=== PATIENT | male | born 1975 | race Caucasian/White ===

== ENCOUNTER 2021-04-12 01:19 | Observation (INO) | payer OTHER ==
[2021-04-12] MEDS ORDERED: MORPHINE SULFATE 4 MG/ML SYRINGE IV STA (01:42)
[2021-04-12] MEDS ORDERED: SODIUM CHLORIDE 0.9% 500 ML 500 ML IV STA (01:42)
[2021-04-12] MEDS ORDERED: ONDANSETRON 4 MG/2 ML VIAL IVP STA (01:42)
--- NOTE | 2021-04-12 02:01 | ED ---
Chest Pain HPI - General Source: patient Mode of arrival: ambulatory Limitations: no limitations <Roseann Park - Last Filed: 04/13/21 15:08> <Jose Muhammad - Last Filed: 04/23/21 03:36> - General Chief Complaint: Chest Pain Stated Complaint: Abd Pain Time Seen by Provider: 04/12/21 01:34 - History of Present Illness Initial Comments: Patient is a 45-year-old male presenting to the emergency department with a sudden onset of upper abdominal pain with radiation to the back and vomiting about an hour and a half ago. Patient states he was at work when all this started. He just finished a chicken sandwich and started having vomiting. He states the pain is located in the epigastric to some mild right upper quadrant pain and in the pain has been referred to his back He Decided Come in. He States He Is Very Sweaty and Hot, Continues to Be Nauseous and Vomiting. He Is Not Sure If the Pain Is Radiating up into His Chest a Little Bit. He Denies Any Shortness of Breath, No Recent Fevers or Chills. He States before This He [place] His Normal Self. He Takes No Medications, He Does Have History of Appendectomy, No Other Abdominal Surgeries. Patient Has No Further Complaints at This Time. Upon arrival to the ER His Vitals Are Stable. (Roseann Park) - Related Data Home Medications Medication Instructions Recorded Confirmed Fluticasone Nasal [place] [Flonase 2 spr EA NOSTRIL DAILY 04/12/21 04/12/21 Nasal [place]] Previous Rx's Medication Instructions Recorded Docusate [Colace] 100 mg PO BID #30 cap 04/16/21 HYDROcodone/APAP 5-325MG [[place] 1 tab PO Q6HR PRN 3 Days #12 tab 04/16/21 5-325] Pantoprazole [Protonix] 40 mg PO DAILY #14 tab 04/16/21 Allergies Allergy/AdvReac Type Severity Reaction Status Date / Time No Known Allergies Allergy Verified 04/12/21 06:37 Review of Systems ROS Other: All systems not noted in ROS Statement are negative. <Roseann Park - Last Filed: 04/13/21 15:08> ROS Other: All systems not noted in ROS Statement are negative. <Jose Muhammad - Last Filed: 04/23/21 03:36> ROS Statement: Those systems with pertinent positive or pertinent negative responses have been documented in the HPI. EKG Findings - EKG Comments: EKG Findings:: Normal sinus rhythm, incomplete RBBB, no signs of acute ST segment elevation. Ventricular rate 64, CO interval 130, QTC 380. <Roseann Park - Last Filed: 04/13/21 15:08> Past Medical History Past Medical History: No Reported History History of Any Multi-Drug Resistant Organisms: None Reported Past Surgical History: Appendectomy Past Psychological History: No Psychological Hx Reported Smoking Status: Former smoker Past Alcohol Use History: Occasional Past Drug Use History: None Reported <Roseann Park - Last Filed: 04/13/21 15:08> General Exam Limitations: no limitations <Roseann Park - Last Filed: 04/13/21 15:08> - General Exam Comments Initial Comments: GENERAL: Patient is well-developed and well-nourished. Patient is nontoxic and in moderate distress, actively vomiting, diaphoretic. HEAD: Atraumatic, normocephalic. EYES: Pupils equal round and reactive to light, extraocular movements intact, sclera anicteric, conjunctiva are normal. Eyelids were unremarkable. ENT: TMs normal, nares patent, oropharynx clear without exudates. Moist mucous membranes. NECK: Normal range of motion, supple without lymphadenopathy or JVD. LUNGS: Unlabored respirations. Breath sounds clear to auscultation bilaterally and equal. No wheezes rales or rhonchi. HEART: Regular rate and rhythm without murmurs, rubs or gallops. ABDOMEN: Soft, tender to palpation epigastric and right upper quadrant, normoactive bowel sounds. No guarding, no rebound. No masses appreciated. : Deferred MUSCULOSKELETAL: Normal extremities with adequate strength and normal range of motion, no pitting or edema. No clubbing or cyanosis. NEUROLOGICAL: Patient is alert and oriented x 3. Motor and sensory are also intact. Cranial nerves II through XII grossly intact. Symmetrical smile. Normal speech, normal gait. PSYCH: Normal mood, normal affect. SKIN: Warm, Dry, normal turgor, no rashes or lesions noted. (Roseann Park) Course Vital Signs 04/12/21 04/12/21 04/12/21 01:25 03:00 06:28 Temperature 98.1 F Pulse Rate 63 88 72 Respiratory 18 18 18 Rate Blood Pressure 170/94 132/82 122/69 O2 Sat by Pulse 97 97 99 Oximetry 04/12/21 04/12/21 04/12/21 08:45 12:18 14:48 Temperature Pulse Rate 70 77 75 Respiratory 18 18 20 Rate Blood Pressure 142/84 141/84 142/86 O2 Sat by Pulse 96 97 96 Oximetry 04/12/21 04/12/21 15:32 16:30 Temperature 98.4 F Pulse Rate 74 76 Respiratory 20 20 Rate Blood Pressure 136/78 O2 Sat by Pulse 96 98 Oximetry Chest Pain MDM <Roseann Park - Last Filed: 04/13/21 15:08> - MDM She is a 45-year-old male presenting with acute onset epigastric pain with radiation to the back. He is diaphoretic upon arrival, his vitals are stable. Given patient's intense pain and diaphoresis, did order a chest abdomen and pelvic and 0 CT, there is no acute findings in this except for gallstones. Patient was given pain meds, Pushpaan reports improvement in his symptoms. Ang noriega is also reporting chest pain, his EKG was within normal limits. Patient was signed out to Dr. Muhammad at 3am. Patient was admitted for Chest pain r/u and cholelithiasis. Dr. Gonzalez's group is accepting. (Roseann Park) Disposition Is patient prescribed a controlled substance at d/c from ED?: No <Roseann Park - Last Filed: 04/13/21 15:08> Is patient prescribed a controlled substance at d/c from ED?: No <Jose Muhammad - Last Filed: 04/23/21 03:36> Clinical Impression: Atypical chest pain, Chest pain, Cholelithiasis Disposition: ADMITTED IP TO THIS HOSP Condition: Good
[2021-04-12 02:14] LABS: ALT 31 U/L (4-49); AST 36 U/L (17-59); African American GFR (CKD) >90 (>60 ml/min/1.73 sqM); Albumin 4.5 g/dL (3.5-5.0); Alkaline Phosphatase 58 U/L (38-126); Anion Gap 13 mmol/L; Basophils # (A) 0.1 k/uL (0-0.2); Basophils % (A) 1 %; Blood Urea Nitrogen 17 mg/dL (9-20); Calcium 9.8 mg/dL (8.4-10.2); Carbon Dioxide 22 mmol/L (22-30); Chloride 103 mmol/L (98-107); Eosinophils # (A) 0.2 k/uL (0-0.7); Eosinophils % (A) 2 %; Glucose 123 mg/dL (74-99); HCT 46.8 % (39.0-53.0); HGB 16.2 gm/dL (13.0-17.5); Lipase 170 U/L (23-300); Lymphocytes # (A) 2.4 k/uL (1.0-4.8); Lymphocytes % (A) 26 %; MCH 31.4 pg (25.0-35.0); MCHC 34.7 g/dL (31.0-37.0); MCV 90.6 fL (80.0-100.0); Magnesium 2.2 mg/dL (1.6-2.3); Mean Platelet Volume 7.7; Monocytes # (A) 0.4 k/uL (0-1.0); Monocytes % (A) 5 %; Neutrophils % (A) 65 %; Non-African American GFR(CKD) 88 (>60 ml/min/1.73 sqM); Platelet Count 227 k/uL (150-450); Potassium 4.4 mmol/L (3.5-5.1); RBC 5.17 m/uL (4.30-5.90); RDW 12.3 % (11.5-15.5); Sodium 138 mmol/L (137-145); Total Bilirubin 0.8 mg/dL (0.2-1.3); Total Protein 7.6 g/dL (6.3-8.2); WBC 9.2 k/uL (3.8-10.6)
[2021-04-12 02:25] LABS: INR 0.9 (<1.2); Prothrombin Time 9.9 sec (9.0-12.0)
[2021-04-12 02:27] LABS: Partial Thromboplastin Time 21.1 sec (22.0-30.0)
--- NOTE | 2021-04-12 02:56 | CT ---
EXAMINATION TYPE: CT angio thor/abd pel aorta DATE OF EXAM: 04/12/2021 COMPARISON: HISTORY: severe chest pain that radiates to back. vomiting CT DLP: 1701.8 mGycm Automated exposure control for dose reduction was used. CONTRAST: Performed with IV Contrast, patient injected with 100 mL of Isovue 370. Images obtained from the thoracic inlet to the floor the pelvis without and with IV contrast. There a re 3-D post processed images. The lungs are clear of infiltrate. There is no evidence of a pulmonary mass. Heart size is normal. Th ere is no pericardial effusion. There is no pleural effusion. There is no distal adenopathy. There ar e no hilar masses. Thoracic aorta is intact. There is normal branching pattern of the great vessels on the aortic arch. There is no thoracic aortic aneurysm or dissection. There are no filling defects in the pulmonary art eries. Liver spleen pancreas stomach appear intact. There are multiple gallstones. Bile ducts are not dilate d. There is no adrenal mass. Kidneys show satisfactory contrast opacification. There is no hydronephrosi s. Ureters are not dilated. There is no retroperitoneal adenopathy. Bladder distends smoothly. There is no inguinal hernia. Abdominal aorta is intact. There is normal contrast opacification of the celiac artery and superior m esenteric artery. There is arterial flow in both renal arteries. There is arterial flow in the iliac and femoral arteries. There is no evidence of arterial aneurysm or dissection. I see no hemodynamic s tenosis. There is 1 cm hypodensity in the anterior left lobe of the liver that is probably a cyst. Th oracic and lumbar spine show no compression fracture. There is L5 spondylolysis without spondylolisth esis. Sternum is intact. The bony pelvis is intact. Appendix is not seen. There is no sign of thicken ed appendix. There is no mesenteric edema. There is no ascites or free air. There is no bowel obstruction. There i s no compression fracture. IMPRESSION: Negative CT angiogram of the chest abdomen pelvis. No evidence of arterial aneurysm or dissection. No evidence of stenosis. No evidence of pulmonary embolism. Cholelithiasis.
[2021-04-12] MEDS ORDERED: KETOROLAC 15 MG/ML 1 ML VIAL IVP STA (03:01)
[2021-04-12] MEDS ORDERED: MORPHINE SULFATE 4 MG/ML SYRINGE IVP STA (03:01)
[2021-04-12] MEDS ORDERED: ONDANSETRON 4 MG/2 ML VIAL IVP PRN (03:02)
[2021-04-12] MEDS ORDERED: PANTOPRAZOLE 40 MG/10 ML VIAL IVP STA (03:02)
[2021-04-12] MEDS ORDERED: NITROGLYCERIN SL TABS 0.4 MG TAB SUBLINGUAL PRN (03:11)
[2021-04-12] MEDS ORDERED: ASPIRIN 81 MG PO STA (03:11)
[2021-04-12] MEDS: MORPHINE SULFATE 4 MG/ML SYRINGE IVP PRN ×4 (06:28→19:43)
--- NOTE | 2021-04-12 07:52 | US ---
EXAMINATION TYPE: US gallbladder DATE OF EXAM: 04/12/2021 COMPARISON: CT 2020 CLINICAL HISTORY: cholelithiasis. EXAM MEASUREMENTS: Liver Length: 15.2 cm Gallbladder Wall: 0.4 cm CBD: 0.4 cm Right Kidney: 11.1x5.9x5.8 cm Pancreas: wnl Liver: Left lobe liver simple cyst measuring 1.2x1.0x1.0cm, Focal fatty sparring adjacent the GB Gallbladder: Probable multiple gallstones seen within the GB, mobile Evidence for sonographic Dolan's sign: Patient medicated CBD: wnl Right Kidney: wnl IMPRESSION: 1. Hepatic cyst suspected fatty sparing near the gallbladder fossa. Correlate for hepatic steatosis. 2. Numerous gallstones with mild wall thickening correlate for cholecystitis.
[2021-04-12] MEDS: PANTOPRAZOLE 40 MG/10 ML VIAL IVP SCH (09:33)
[2021-04-13] MEDS: MORPHINE SULFATE 4 MG/ML SYRINGE IVP PRN ×6 (01:39→22:43)
[2021-04-13] MEDS: PANTOPRAZOLE 40 MG/10 ML VIAL IVP SCH (08:05)
[2021-04-13] MEDS: ASPIRIN 325 MG TAB PO SCH (08:05)
[2021-04-13 08:25] LABS: Basophils % (A) 0 %; Eosinophils % (A) 0 %; HCT 48.3 % (39.0-53.0); HGB 15.8 gm/dL (13.0-17.5); Lymphocytes # (A) 1.1 k/uL (1.0-4.8); Lymphocytes % (A) 9 %; MCH 30.3 pg (25.0-35.0); MCHC 32.6 g/dL (31.0-37.0); MCV 93.1 fL (80.0-100.0); Mean Platelet Volume 7.5; Monocytes # (A) 0.7 k/uL (0-1.0); Monocytes % (A) 6 %; Neutrophils # (A) 10.3 k/uL (1.3-7.7); Neutrophils % (A) 84 %; Platelet Count 204 k/uL (150-450); RBC 5.19 m/uL (4.30-5.90); RDW 12.4 % (11.5-15.5); WBC 12.3 k/uL (3.8-10.6)
[2021-04-13 08:38] LABS: ALT 25 U/L (4-49); AST 25 U/L (17-59); African American GFR (CKD) 82 (>60 ml/min/1.73 sqM); Albumin 3.9 g/dL (3.5-5.0); Albumin/Globulin Ratio 1.3; Alkaline Phosphatase 60 U/L (38-126); Anion Gap 8 mmol/L; Bilirubin,Unconjugated 1.9 mg/dL (0.0-1.1); Blood Urea Nitrogen 12 mg/dL (9-20); Calcium 9.4 mg/dL (8.4-10.2); Carbon Dioxide 28 mmol/L (22-30); Chloride 101 mmol/L (98-107); Globulin 2.9 g/dL; Glucose 105 mg/dL (74-99); Non-African American GFR(CKD) 71 (>60 ml/min/1.73 sqM); Potassium 4.5 mmol/L (3.5-5.1); Sodium 137 mmol/L (137-145); Total Protein 6.8 g/dL (6.3-8.2)
[2021-04-13 10:58] LABS: Chol/HDL Ratio 4.11; LDL Cholesterol,Calculated 116.4 mg/dL (0.0-131.0); VLDL Calculation 26.6 mg/dL (5.00-40.00)
[2021-04-13] MEDS: SODIUM CHLORIDE 0.9% 1,000 ML IV SCH ×2 (11:08→20:03)
--- NOTE | 2021-04-13 11:52 | P.GSCN ---
History of Present Illness Consult date: 04/13/21 Reason for Consult: Abdominal pain History of present illness: Is a 45-year-old male who is brought into the emergency room for workup of right upper quadrant/chest pain. Patient's found have evidence of cholelithiasis. And possible cholecystitis. Past Medical History Past Medical History: No Reported History History of Any Multi-Drug Resistant Organisms: None Reported Past Surgical History: Appendectomy Past Anesthesia/Blood Transfusion Reactions: No Reported Reaction Past Psychological History: No Psychological Hx Reported Smoking Status: Former smoker Past Alcohol Use History: Occasional Past Drug Use History: None Reported Medications and Allergies Home Medications Medication Instructions Recorded Confirmed Type Fluticasone Nasal [place] [Flonase 2 spr EA NOSTRIL DAILY 04/12/21 04/12/21 History Nasal [place]] Allergies Allergy/AdvReac Type Severity Reaction Status Date / Time No Known Allergies Allergy Verified 04/12/21 06:37 Surgical - Exam Vital Signs Temp Pulse Resp BP Pulse Ox 98.1 F 63 18 170/94 97 04/12/21 01:25 04/12/21 01:25 04/12/21 01:25 04/12/21 01:25 04/12/21 01:25 - General well developed, well nourished, no distress - Eyes PERRL - ENT normal pinna - Neck no masses - Respiratory normal expansion - Cardiovascular Rhythm: regular - Abdomen Mild right upper quadrant tenderness Abdomen: soft Results - Labs 04/13/21 07:44 04/13/21 07:44 Abnormal Lab Results - Last 24 Hours (Table) 04/13/21 04/13/21 Range/Units 07:44 07:44 WBC 12.3 H (3.8-10.6) k/uL Neutrophils # 10.3 H (1.3-7.7) k/uL Glucose 105 H (74-99) mg/dL Total Bilirubin 2.0 H (0.2-1.3) mg/dL Unconjugated Bilirubin 1.9 H (0.0-1.1) mg/dL Diabetes panel 04/12/21 04/13/21 Range/Units 01:51 07:44 Sodium 137 (137-145) mmol/L Potassium 4.5 (3.5-5.1) mmol/L Chloride 101 (98-107) mmol/L Carbon Dioxide 28 (22-30) mmol/L BUN 12 (9-20) mg/dL Creatinine 1.22 (0.66-1.25) mg/dL Glucose 105 H (74-99) mg/dL Calcium 9.4 (8.4-10.2) mg/dL AST 25 (17-59) U/L ALT 25 (4-49) U/L Alkaline Phosphatase 60 (38-126) U/L Total Protein 6.8 (6.3-8.2) g/dL Albumin 3.9 (3.5-5.0) g/dL Triglycerides 133.0 (0.0-149.0) mg/dL HDL Cholesterol 46.0 (40.0-60.0) mg/dL Calcium panel 04/13/21 Range/Units 07:44 Calcium 9.4 (8.4-10.2) mg/dL Albumin 3.9 (3.5-5.0) g/dL Pituitary panel 04/13/21 Range/Units 07:44 Sodium 137 (137-145) mmol/L Potassium 4.5 (3.5-5.1) mmol/L Chloride 101 (98-107) mmol/L Carbon Dioxide 28 (22-30) mmol/L BUN 12 (9-20) mg/dL Creatinine 1.22 (0.66-1.25) mg/dL Glucose 105 H (74-99) mg/dL Calcium 9.4 (8.4-10.2) mg/dL Adrenal panel 04/13/21 Range/Units 07:44 Sodium 137 (137-145) mmol/L Potassium 4.5 (3.5-5.1) mmol/L Chloride 101 (98-107) mmol/L Carbon Dioxide 28 (22-30) mmol/L BUN 12 (9-20) mg/dL Creatinine 1.22 (0.66-1.25) mg/dL Glucose 105 H (74-99) mg/dL Calcium 9.4 (8.4-10.2) mg/dL Total Bilirubin 2.0 H (0.2-1.3) mg/dL AST 25 (17-59) U/L ALT 25 (4-49) U/L Alkaline Phosphatase 60 (38-126) U/L Total Protein 6.8 (6.3-8.2) g/dL Albumin 3.9 (3.5-5.0) g/dL Assessment and Plan Assessment: Cholelithiasis Cholestasis. Patient will undergo laparoscopic cholecystectomy in a.m.
[2021-04-13] MEDS: AMPICILLIN-SULBACTAM 3 GM in SODIUM CHLORIDE 0.9% 100 ML IVPB SCH ×2 (15:13→20:02)
[2021-04-14] MEDS: MORPHINE SULFATE 4 MG/ML SYRINGE IVP PRN ×4 (02:27→23:27)
[2021-04-14] MEDS: AMPICILLIN-SULBACTAM 3 GM in SODIUM CHLORIDE 0.9% 100 ML IVPB SCH ×4 (02:29→19:19)
[2021-04-14] MEDS: SODIUM CHLORIDE 0.9% 1,000 ML IV SCH ×2 (05:53→18:05)
[2021-04-14] MEDS: ASPIRIN 325 MG TAB PO SCH (09:18)
[2021-04-14] MEDS: PANTOPRAZOLE 40 MG TABLET PO SCH (09:18)
[2021-04-14] MEDS ORDERED: ONDANSETRON 4 MG/2 ML VIAL IVP ONE (09:50)
[2021-04-14] MEDS ORDERED: SODIUM CHLORIDE 0.9% 100 ML with ceFAZolin 2,000 MG IV ONE ×2 (10:17)
[2021-04-14] MEDS ORDERED: SODIUM CHLORIDE 0.9% 1,000 ML IV ONE (10:17)
[2021-04-14] MEDS ORDERED: IV FLUID CONTINUATION 1,000 ML IV ONE (10:17)
[2021-04-14] MEDS ORDERED: PROPOFOL 10 MG/ML 20 ML VIAL IV ONE (10:19)
[2021-04-14] MEDS ORDERED: MIDAZOLAM 2 MG/2 ML VIAL ONE (10:19)
[2021-04-14] MEDS ORDERED: KETOROLAC 15 MG/ML 1 ML VIAL ONE (10:19)
[2021-04-14] MEDS ORDERED: NEOSTIGMINE 1 MG/ML 10 ML VIAL ONE (10:19)
[2021-04-14] MEDS ORDERED: HYDROmorphone (PF) 1 MG/ML ONE (10:19)
[2021-04-14] MEDS ORDERED: GLYCOPYRROLATE 0.2 MG/ML 2 ML VIAL ONE (10:19)
[2021-04-14] MEDS ORDERED: SUCCINYLCHOLINE CHLORIDE 100 MG/5 ML SYR IV ONE (10:19)
[2021-04-14] MEDS ORDERED: fentaNYL (PF) 50 MCG/ML 2 ML AMP ONE (10:19)
[2021-04-14] MEDS ORDERED: ROCURONIUM 10 MG/ML (5 ML VIAL) IV ONE (10:19)
[2021-04-14] MEDS ORDERED: BUPIVACAINE (PF) 0.5% 30 ML VIAL SQ ONE (10:40)
--- NOTE | 2021-04-14 11:06 | P.HPIM ---
History of Present Illness H&P Date: 04/12/21 Chief Complaint: Abdominal pain/chest pain 45-year-old male presenting to the emergency department with a sudden onset of upper abdominal pain with radiation to the back and vomiting about an hour and a half ago. Patient states he was at work when all this started. He just finished a chicken sandwich and started having vomiting. He states the pain is located in the epigastric to some mild right upper quadrant pain and in the pain has been referred to his back He Decided Come in. He States He Is Very Sweaty and Hot, Continues to Be Nauseous and Vomiting. He Is Not Sure If the Pain Is Radiating up into His Chest a Little Bit. He Denies Any Shortness of Breath, No Recent Fevers or Chills. He States before This He [place] His Normal Self. He Takes No Medications, He Does Have History of Appendectomy, No Other Abdominal Surgeries. Workup in ED including abdomen/pelvis CT, there is no acute findings in this except for gallstones. Patient was given pain meds, Zofran reports improvement in his symptoms. Patient is also reporting chest pain, his EKG was within normal limits. Patient is admitted to the hospital for cholelithiasis and possible acute cholecystitis and atypical chest pain Review of Systems REVIEW OF SYSTEMS: CONSTITUTIONAL: No fever, no malaise, no fatigue. HEENT: No recent visual problems or hearing problems. Denied any sore throat. CARDIOVASCULAR: No chest pain, orthopnea, PND, no palpitations, no syncope. PULMONARY: No shortness of breath, no cough, no hemoptysis. GASTROINTESTINAL: No diarrhea, no nausea, no vomiting, no abdominal pain. NEUROLOGICAL: No headaches, no weakness, no numbness. HEMATOLOGICAL: Denies any bleeding or petechiae. GENITOURINARY: Denies any burning micturition, frequency, or urgency. MUSCULOSKELETAL/RHEUMATOLOGICAL: Denies any joint pain, swelling, or any muscle pain. ENDOCRINE: Denies any polyuria or polydipsia. The rest of the 14-point review of systems is negative. Past Medical History Past Medical History: No Reported History History of Any Multi-Drug Resistant Organisms: None Reported Past Surgical History: Appendectomy Past Psychological History: No Psychological Hx Reported Smoking Status: Former smoker Past Alcohol Use History: Occasional Past Drug Use History: None Reported Medications and Allergies Home Medications Medication Instructions Recorded Confirmed Type Fluticasone Nasal [place] [Flonase 2 spr EA NOSTRIL DAILY 04/12/21 04/12/21 History Nasal [place]] Allergies Allergy/AdvReac Type Severity Reaction Status Date / Time No Known Allergies Allergy Verified 04/12/21 06:37 Physical Exam Vitals: Vital Signs Temp Pulse Resp BP Pulse Ox 04/12/21 12:18 77 18 141/84 97 04/12/21 08:45 70 18 142/84 96 04/12/21 06:28 72 18 122/69 99 04/12/21 03:00 88 18 132/82 97 04/12/21 01:25 98.1 F 63 18 170/94 97 Intake and Output 04/11/21 04/12/21 04/12/21 22:59 06:59 14:59 Other: Weight 113.398 kg - Constitutional General appearance: Present: average body habitus, cooperative, no acute distress - EENT Eyes: Present: anicteric sclerae, EOMI, PERRLA, normal appearance ENT: Present: hearing grossly normal, normal oropharynx Ears: bilateral: normal - Neck Neck: Present: normal ROM. Absent: lymphadenopathy, rigidity, thyromegaly Carotids: negative: bruit present Thyroid: bilateral: normal size, negative: enlarged, nodule - Respiratory Respiratory: bilateral: CTA, negative: rales, rhonchi, wheezing - Cardiovascular Rhythm: regular Heart sounds: normal: S1, S2 Abnormal Heart Sounds: Absent: systolic murmur, diastolic murmur - Gastrointestinal General gastrointestinal: Present: normal bowel sounds, soft. Absent: distended, organomegaly, tenderness - Genitourinary Genitourinary Comment(s): deferred - Integumentary Integumentary: Present: normal turgor. Absent: jaundiced, rash, ulcer - Neurologic Neurologic: Present: CNII-XII intact. Absent: focal deficits - Musculoskeletal Musculoskeletal: Present: gait normal, strength equal bilaterally - Psychiatric Psychiatric: Present: A&O x's 3, appropriate affect, intact judgment & insight Results CBC & Chem 7: 04/13/21 07:44 04/13/21 07:44 Labs: Abnormal Lab Results - Last 24 Hours (Table) 04/12/21 04/12/21 Range/Units 01:51 01:51 APTT 21.1 L (22.0-30.0) sec Glucose 123 H (74-99) mg/dL Assessment and Plan Assessment: 1. Abdominal pain; CT of abdomen reveals cholelithiasis with possible cholecystitis - We will start patient on IV Unasyn; IV fluids in form of normal saline; keep patient nothing by mouth; consult surgery for further recommendations 2. Atypical chest pain; we will monitor EKG and trend troponin; patient has a low score; we will consult cardiology if workup is indicative of heart disease; no history of hypertension, hyperlipidemia or family history of heart disease; patient is a former smoker 3. Obesity; counseling done DVT prophylaxis; SCDs CODE STATUS; full code
--- NOTE | 2021-04-14 11:09 | P.OP ---
Date of Procedure: 04/14/21 Preoperative Diagnosis: Acute cholecystitis Postoperative Diagnosis: Acute cholecystitis Cholelithiasis Procedure(s) Performed: Laparoscopic cholecystectomy Anesthesia: KAMLA Surgeon: Terrance Carter Estimated Blood Loss (ml): 10 Pathology: other (Gallbladder) Condition: stable Disposition: PACU Description of Procedure: The patient was placed on the operating table. The patient received a general endotracheal tube anesthesia. The patients abdomen was prepped and draped in the usual sterile fashion. Through an infraumbilical stab incision, the fascia of the anterior abdominal wall was grasped with a pair of Kochers and then the Veress needle was placed in the peritoneal cavity. Position of the Veress needle was confirmed with positive drop test. The abdomen was then insufflated. After adequate insufflation, the 10 mm trocar was placed in the peritoneal cavity. Following this the laparoscope was placed in the peritoneal cavity. The patient was placed in the head-up, right side up position and then a 5 mm trocar was placed in the right lateral and right subcostal position under direct visualization. A 8 mm trocar was placed in the epigastric position. The gallbladder was hydropic. The gallbladder was aspirated The gallbladder was grasped in the fundus and infundibulum. Traction on the gallbladder was placed in the lateral and the cephalad positions. The triangle of Calot was visualized.. The cystic duct was bluntly dissected until the union of the cystic duct and common bile duct was seen. A critical view of safety was achieved. The cystic duct was then divided and sealed with the Harmonic scissors. A PDS Endoloop was then placed throughout the cystic duct stump. The cystic artery divided and sealed with the Harmonic scissors. The gallbladder was then removed from the liver bed using Harmonic scissors. The gallbladder was then extracted through the epigastric port site. Operative field was checked for any bleeding spots and Harmonic scissors was used to coagulate the liver bed. The abdomen was irrigated. The trocars were removed. The skin was closed using interrupted 3-0 Vicryl suture. Dermabond dressing were applied. The patient tolerated the procedure well.
--- NOTE | 2021-04-14 11:10 | P.PN ---
Subjective Progress Note Date: 04/13/21 Principal diagnosis: Cholelithiasis/acute cholecystitis Atypical chest pain 45-year-old male presenting to the emergency department with a sudden onset of upper abdominal pain with radiation to the back and vomiting about an hour and a half ago. Patient states he was at work when all this started. He just finished a chicken sandwich and started having vomiting. He states the pain is located in the epigastric to some mild right upper quadrant pain and in the pain has been referred to his back He Decided Come in. He States He Is Very Sweaty and Hot, Continues to Be Nauseous and Vomiting. He Is Not Sure If the Pain Is Radiating up into His Chest a Little Bit. He Denies Any Shortness of Breath, No Recent Fevers or Chills. He States before This He [place] His Normal Self. He Takes No Medications, He Does Have History of Appendectomy, No Other Abdominal Surgeries. Workup in ED including abdomen/pelvis CT, there is no acute findings in this except for gallstones. Patient was given pain meds, Zofran reports improvement in his symptoms. Patient is also reporting chest pain, his EKG was within normal limits. Patient is admitted to the hospital for cholelithiasis and possible acute cholecystitis and atypical chest pain Objective - Vital Signs Vital signs: Vital Signs Temp 99.8 F H 04/13/21 07:00 Pulse 99 04/13/21 07:00 Resp 18 04/13/21 07:00 BP 123/78 04/13/21 07:00 Pulse Ox 91 L 04/13/21 07:00 Intake & Output 04/12/21 04/13/21 04/13/21 18:59 06:59 18:59 Other: Voiding Method Toilet # Voids 2 - Exam - Constitutional General appearance: Present: average body habitus, cooperative, no acute distress - EENT Eyes: Present: anicteric sclerae, EOMI, PERRLA, normal appearance ENT: Present: hearing grossly normal, normal oropharynx Ears: bilateral: normal - Neck Neck: Present: normal ROM. Absent: lymphadenopathy, rigidity, thyromegaly Carotids: negative: bruit present Thyroid: bilateral: normal size, negative: enlarged, nodule - Respiratory Respiratory: bilateral: CTA, negative: rales, rhonchi, wheezing - Cardiovascular Rhythm: regular Heart sounds: normal: S1, S2 Abnormal Heart Sounds: Absent: systolic murmur, diastolic murmur - Gastrointestinal General gastrointestinal: Present: normal bowel sounds, soft. Absent: distended, organomegaly, tenderness - Genitourinary Genitourinary Comment(s): deferred - Integumentary Integumentary: Present: normal turgor. Absent: jaundiced, rash, ulcer - Neurologic Neurologic: Present: CNII-XII intact. Absent: focal deficits - Musculoskeletal Musculoskeletal: Present: gait normal, strength equal bilaterally - Psychiatric Psychiatric: Present: A&O x's 3, appropriate affect, intact judgment & insight - Labs CBC & Chem 7: 04/13/21 07:44 04/13/21 07:44 Labs: Abnormal Lab Results - Last 24 Hours (Table) 04/13/21 04/13/21 Range/Units 07:44 07:44 WBC 12.3 H (3.8-10.6) k/uL Neutrophils # 10.3 H (1.3-7.7) k/uL Glucose 105 H (74-99) mg/dL Total Bilirubin 2.0 H (0.2-1.3) mg/dL Unconjugated Bilirubin 1.9 H (0.0-1.1) mg/dL Assessment and Plan Assessment: 1. Abdominal pain; CT of abdomen reveals cholelithiasis with possible cholecystitis - We will start patient on IV Unasyn; IV fluids in form of normal saline; keep patient nothing by mouth; consult surgery for further recommendations 2. Atypical chest pain; we will monitor EKG and trend troponin; patient has a low score; we will consult cardiology if workup is indicative of heart disease; no history of hypertension, hyperlipidemia or family history of heart disease; patient is a former smoker 3. Obesity; counseling done DVT prophylaxis; SCDs CODE STATUS; full code
[2021-04-14] MEDS: ACETAMINOPHEN TAB 325 MG TAB PO PRN (19:51)
--- NOTE | 2021-04-14 20:15 | P.PN ---
Subjective Progress Note Date: 04/14/21 Principal diagnosis: Cholelithiasis/acute cholecystitis Atypical chest pain 45-year-old male presenting to the emergency department with a sudden onset of upper abdominal pain with radiation to the back and vomiting about an hour and a half ago. Patient states he was at work when all this started. He just finished a chicken sandwich and started having vomiting. He states the pain is located in the epigastric to some mild right upper quadrant pain and in the pain has been referred to his back He Decided Come in. He States He Is Very Sweaty and Hot, Continues to Be Nauseous and Vomiting. He Is Not Sure If the Pain Is Radiating up into His Chest a Little Bit. He Denies Any Shortness of Breath, No Recent Fevers or Chills. He States before This He [place] His Normal Self. He Takes No Medications, He Does Have History of Appendectomy, No Other Abdominal Surgeries. Workup in ED including abdomen/pelvis CT, there is no acute findings in this except for gallstones. Patient was given pain meds, Zofran reports improvement in his symptoms. Patient is also reporting chest pain, his EKG was within normal limits. Patient is admitted to the hospital for cholelithiasis and possible acute cholecystitis and atypical chest pain 04/14/2021 Patient is seen and evaluated resting in bed; patient is status post laparoscopi c cholecystectomy; patient has been started on clear liquid diet Vital signs are reviewed and stable; patient denies any specific complaints Possible discharge in next 24-48 hours once cleared by surgery Objective - Vital Signs Vital signs: Vital Signs Temp 99.6 F 04/14/21 11:27 Pulse 98 04/14/21 12:13 Resp 16 04/14/21 12:13 BP 122/66 04/14/21 12:13 Pulse Ox 94 L 04/14/21 12:13 Intake & Output 04/13/21 04/14/21 04/14/21 18:59 06:59 18:59 Intake Total 1400 950 Output Total 20 Balance 1400 930 Weight 113.398 kg Intake: IV 950 Intake, IV Titration 1400 Amount Ampicillin-Sulbactam 3 gm 200 In Sodium Chloride 0.9% 100 ml @ 200 mls/hr IVPB Q6H [facility] Rx#:[id number] Sodium Chloride 0.9% 1, 1200 000 ml @ 100 mls/hr IV . Q10H FRANCA Rx#:[id number] Output: Estimated Blood Loss 20 Other: Voiding Method Toilet # Voids 1 - Exam - Constitutional General appearance: Present: average body habitus, cooperative, no acute distress - EENT Eyes: Present: anicteric sclerae, EOMI, PERRLA, normal appearance ENT: Present: hearing grossly normal, normal oropharynx Ears: bilateral: normal - Neck Neck: Present: normal ROM. Absent: lymphadenopathy, rigidity, thyromegaly Carotids: negative: bruit present Thyroid: bilateral: normal size, negative: enlarged, nodule - Respiratory Respiratory: bilateral: CTA, negative: rales, rhonchi, wheezing - Cardiovascular Rhythm: regular Heart sounds: normal: S1, S2 Abnormal Heart Sounds: Absent: systolic murmur, diastolic murmur - Gastrointestinal General gastrointestinal: Present: normal bowel sounds, soft. Absent: diste nded, organomegaly, tenderness - Genitourinary Genitourinary Comment(s): deferred - Integumentary Integumentary: Present: normal turgor. Absent: jaundiced, rash, ulcer - Neurologic Neurologic: Present: CNII-XII intact. Absent: focal deficits - Musculoskeletal Musculoskeletal: Present: gait normal, strength equal bilaterally - Psychiatric Psychiatric: Present: A&O x's 3, appropriate affect, intact judgment & insight - Labs CBC & Chem 7: 04/13/21 07:44 04/13/21 07:44 Assessment and Plan Assessment: 1. Abdominal pain; CT of abdomen reveals cholelithiasis with possible cholecystitis - We will start patient on IV Unasyn; IV fluids in form of normal saline; keep patient nothing by mouth; consult surgery for further recommendations 2. Atypical chest pain; we will monitor EKG and trend troponin; patient has a low score; we will consult cardiology if workup is indicative of heart disease; no history of hypertension, hyperlipidemia or family history of heart disease; patient is a former smoker 3. Obesity; counseling done DVT prophylaxis; SCDs CODE STATUS; full code
[2021-04-15] MEDS: AMPICILLIN-SULBACTAM 3 GM in SODIUM CHLORIDE 0.9% 100 ML IVPB SCH ×4 (01:46→20:19)
[2021-04-15] MEDS: ACETAMINOPHEN TAB 325 MG TAB PO PRN (01:46)
[2021-04-15] MEDS: SODIUM CHLORIDE 0.9% 1,000 ML IV SCH ×3 (01:46→21:45)
[2021-04-15] MEDS: MORPHINE SULFATE 4 MG/ML SYRINGE IVP PRN ×3 (03:19→20:20)
[2021-04-15 06:44] VITALS: RESP 18
[2021-04-15] MEDS: ASPIRIN 325 MG TAB PO SCH (08:29)
[2021-04-15] MEDS: PANTOPRAZOLE 40 MG TABLET PO SCH (08:29)
[2021-04-15 09:55] LABS: Basophils % (A) 0 %; Eosinophils # (A) 0.1 k/uL (0-0.7); Eosinophils % (A) 1 %; HCT 38.2 % (39.0-53.0); HGB 13.1 gm/dL (13.0-17.5); Lymphocytes # (A) 0.8 k/uL (1.0-4.8); Lymphocytes % (A) 9 %; MCH 31.6 pg (25.0-35.0); MCHC 34.4 g/dL (31.0-37.0); MCV 92.1 fL (80.0-100.0); Mean Platelet Volume 7.8; Monocytes # (A) 0.5 k/uL (0-1.0); Monocytes % (A) 6 %; Neutrophils # (A) 7.2 k/uL (1.3-7.7); Neutrophils % (A) 82 %; Platelet Count 191 k/uL (150-450); RBC 4.15 m/uL (4.30-5.90); RDW 12.8 % (11.5-15.5); WBC 8.8 k/uL (3.8-10.6)
[2021-04-15 09:59] LABS: Anion Gap 9 mmol/L; Carbon Dioxide 24 mmol/L (22-30); Chloride 104 mmol/L (98-107); Globulin 2.9 g/dL; Glucose 113 mg/dL (74-99); Potassium 3.8 mmol/L (3.5-5.1); Sodium 137 mmol/L (137-145); Total Protein 5.9 g/dL (6.3-8.2)
[2021-04-15 10:01] LABS: ALT 67 U/L (4-49); AST 68 U/L (17-59); African American GFR (CKD) >90 (>60 ml/min/1.73 sqM); Alkaline Phosphatase 92 U/L (38-126); Blood Urea Nitrogen 10 mg/dL (9-20); Calcium 8.3 mg/dL (8.4-10.2); Non-African American GFR(CKD) >90 (>60 ml/min/1.73 sqM); Total Bilirubin 2.3 mg/dL (0.2-1.3)
[2021-04-15] MEDS: HYDROcodone/APAP 5-325MG 1 EACH TAB PO PRN ×3 (12:26→21:49)
--- NOTE | 2021-04-15 15:02 | P.PN ---
Subjective Progress Note Date: 04/15/21 CHIEF COMPLAINT: Cholecystitis and cholelithiasis HISTORY OF PRESENT ILLNESS: Patient is status post laparoscopic cholecystectomy. Patient reports complaints of abdominal pain. No nausea or vomiting. He is having flatus. He feels his pain is slightly increased since yesterday. Has not been started on oral pain medication yet. He did have a temp of 101 yesterday night with heart rate of 110. He is afebrile this morning. White count has normalized from 12.3-8.8 hemoglobin 13.1 PHYSICAL EXAM: VITAL SIGNS: Reviewed. GENERAL: Well-developed in no acute distress. HEENT: No sclera icterus. Extraocular movements grossly intact. Moist buccal mucosa. Head is atraumatic, normocephalic. ABDOMEN: Soft. Nondistended. Incision sites clean dry and intact. Diffuse tenderness of the abdomen NEUROLOGIC: Alert and oriented. Cranial nerves II through XII grossly intact. ASSESSMENT: 1. Acute cholecystitis and cholelithiasis status post laparoscopic cholecystectomy PLAN: -Add [place] to help with pain control -Advance diet to full liquids -Encourage patient to ambulate -Encourage patient to use incentive spirometer -Anticipate possible discharge tomorrow Physician Tax Evaluator note has been reviewed by physician. Signing provider agrees with the documented findings, assessment, and plan of care. Objective - Vital Signs Vital signs: Vital Signs Temp 99.3 F 04/15/21 14:46 Pulse 85 04/15/21 14:46 Resp 18 04/15/21 14:46 BP 128/76 04/15/21 14:46 Pulse Ox 96 04/15/21 14:46 Intake & Output 04/14/21 04/15/21 04/15/21 18:59 06:59 18:59 Intake Total 1330 1300 120 Output Total 20 Balance 1310 1300 120 Weight 113.398 kg Intake: IV 950 Intake, IV Titration 1300 Amount Ampicillin-Sulbactam 3 gm 100 In Sodium Chloride 0.9% 100 ml @ 200 mls/hr IVPB Q6H [facility] Rx#:[id number] Sodium Chloride 0.9% 1, 1200 000 ml @ 100 mls/hr IV . Q10H [facility] Rx#:[id number] Oral 380 120 Output: Estimated Blood Loss 20 Other: Voiding Method Toilet # Voids 3 1 - Labs CBC & Chem 7: 04/15/21 09:18 04/15/21 09:18 Labs: Abnormal Lab Results - Last 24 Hours (Table) 04/15/21 04/15/21 Range/Units 09:18 09:18 RBC 4.15 L (4.30-5.90) m/uL Hct 38.2 L (39.0-53.0) % Lymphocytes # 0.8 L (1.0-4.8) k/uL Glucose 113 H (74-99) mg/dL Calcium 8.3 L (8.4-10.2) mg/dL Total Bilirubin 2.3 H (0.2-1.3) mg/dL AST 68 H (17-59) U/L ALT 67 H (4-49) U/L Total Protein 5.9 L (6.3-8.2) g/dL Albumin 3.0 L (3.5-5.0) g/dL
--- NOTE | 2021-04-15 21:25 | P.PN ---
Subjective Progress Note Date: 04/15/21 45-year-old male presenting to the emergency department with a sudden onset of upper abdominal pain with radiation to the back and vomiting about an hour and a half ago. Patient states he was at work when all this started. He just finished a chicken sandwich and started having vomiting. He states the pain is located in the epigastric to some mild right upper quadrant pain and in the pain has been referred to his back He Decided Come in. He States He Is Very Sweaty and Hot, Continues to Be Nauseous and Vomiting. He Is Not Sure If the Pain Is Radiating up into His Chest a Little Bit. He Denies Any Shortness of Breath, No Recent Fevers or Chills. He States before This He [place] His Normal Self. He Takes No Medications, He Does Have History of Appendectomy, No Other Abdominal Surgeries. Workup in ED including abdomen/pelvis CT, there is no acute findings in this except for gallstones. Patient was given pain meds, Zofran reports improvement in his symptoms. Patient is also reporting chest pain, his EKG was within normal limits. Patient is admitted to the hospital for cholelithiasis and possible acute cholecystitis and atypical chest pain 04/14/2021 Patient is seen and evaluated resting in bed; patient is status post laparoscopic cholecystectomy; patient has been started on clear liquid diet Vital signs are reviewed and stable; patient denies any specific complaints Possible discharge in next 24-48 hours once cleared by surgery 04/15/2021 Patient is evaluated but he is status post a #2 laparoscopic cholecystectomy. Patient is still on a clear liquid diet. Patient denies any nausea or vomiting. He does state that he has breaking out in the sweats intermittently. He has been febrile T-max in the last 24 hours of 101.1. He denies any chest pain, palpitations, cough, shortness of breath. Patient does have some intermittent Right upper quadrant abdominal pain, 3 out of 10. Heart rate is 96, 90% 2 L of cannula, blood pressure 113/77. Patient is receiving [place] and IV morphine via surgical services. Patient continues on IV antibiotics. Continue to monitor daily labs and vital signs. Patient is passing gas, denies bowel movement. Continue with incentive spirometry, encourage ambulation. ROS Constitutional: Denied any fatigue denied any fever. Cardio vascular: denied any chest pain, palpitations Gastrointestinal denied any nausea vomiting, denies BM, reports gas, reports RUQ abdominal pain Pulmonary: Denied any shortness of breath cough Neurologic denied any new focal deficits All inpatient medications were reviewed and appropriate changes in these medications as dictated in the interval history and assessment and plan. PHYSICAL EXAMINATION: GENERAL: The patient is alert and oriented x3, not in any acute distress. Well developed, well nourished. HEENT: Pupils are round and equally reacting to light. EOMI. No scleral icterus. No conjunctival pallor. Normocephalic, atraumatic. No pharyngeal erythema. No thyromegaly. CARDIOVASCULAR: S1 and S2 present. No murmurs, rubs, or gallops. PULMONARY: Chest is clear to auscultation, no wheezing or crackles. ABDOMEN: Soft, tender, nondistended, normoactive bowel sounds. No palpable organomegaly. MUSCULOSKELETAL: No joint swelling or deformity. EXTREMITIES: No cyanosis, clubbing, or pedal edema. NEUROLOGICAL: Gross neurological examination did not reveal any focal deficits. SKIN: No rashes. Assessment and plan Assessment: 1. Abdominal pain; CT of abdomen reveals cholelithiasis; postop day #2 lap chol e continue on IV Unasyn 2. Atypical chest pain; we will monitor EKG and trend troponin; patient has a low score; we will consult cardiology if workup is indicative of heart disease; no history of hypertension, hyperlipidemia or family history of heart disease; patient is a former smoker 3. Obesity; counseling done DVT prophylaxis; SCDs CODE STATUS; full code Troponins have been negative 3, pt denies CP, no further cardiology work-up. If pt remains afebrile and tolerating diet, possible DC tomorrow. Objective - Vital Signs Vital signs: Vital Signs Temp 98.2 F 04/15/21 06:41 Pulse 96 04/15/21 06:41 Resp 18 04/15/21 06:41 BP 113/77 04/15/21 06:41 Pulse Ox 93 L 04/15/21 06:41 Intake & Output 04/14/21 04/15/21 04/15/21 18:59 06:59 18:59 Intake Total 1330 1300 Output Total 20 Balance 1310 1300 Weight 113.398 kg Intake: IV 950 Intake, IV Titration 1300 Amount Ampicillin-Sulbactam 3 gm 100 In Sodium Chloride 0.9% 100 ml @ 200 mls/hr IVPB Q6H [facility] Rx#:[id number] Sodium Chloride 0.9% 1, 1200 000 ml @ 100 mls/hr IV . Q10H [facility] Rx#:[id number] Oral 380 Output: Estimated Blood Loss 20 Other: Voiding Method Toilet # Voids 3 1 - Labs CBC & Chem 7: 04/15/21 09:18 04/15/21 09:18
[2021-04-16] MEDS: MORPHINE SULFATE 4 MG/ML SYRINGE IVP PRN (00:15)
[2021-04-16] MEDS: AMPICILLIN-SULBACTAM 3 GM in SODIUM CHLORIDE 0.9% 100 ML IVPB SCH ×2 (02:11→07:40)
[2021-04-16] MEDS: HYDROcodone/APAP 5-325MG 1 EACH TAB PO PRN ×3 (02:12→12:41)
[2021-04-16 08:08] VITALS: BP 134/76; PULSE 98; TEMP 98.1
[2021-04-16] MEDS: PANTOPRAZOLE 40 MG TABLET PO SCH (09:01)
[2021-04-16] MEDS: ASPIRIN 325 MG TAB PO SCH (09:01)
[2021-04-16 11:55] LABS: ALT 66 U/L (4-49); AST 55 U/L (17-59); African American GFR (CKD) >90 (>60 ml/min/1.73 sqM); Albumin/Globulin Ratio 1.1; Alkaline Phosphatase 127 U/L (38-126); Anion Gap 8 mmol/L; Blood Urea Nitrogen 7 mg/dL (9-20); Calcium 8.4 mg/dL (8.4-10.2); Carbon Dioxide 25 mmol/L (22-30); Chloride 103 mmol/L (98-107); Globulin 2.7 g/dL; Glucose 128 mg/dL (74-99); Non-African American GFR(CKD) >90 (>60 ml/min/1.73 sqM); Potassium 3.6 mmol/L (3.5-5.1); Sodium 136 mmol/L (137-145); Total Protein 5.7 g/dL (6.3-8.2)
[2021-04-16] MEDS: SODIUM CHLORIDE 0.9% 1,000 ML IV SCH (11:58)
--- NOTE | 2021-04-16 12:56 | P.DS ---
Providers Date of admission: 04/12/21 03:11 Attending physician: Delfino Gonzalez Consults: 04/13/21 07:32 Consult Physician Routine Consulting Provider: Terrance Carter Consult Reason/Comments: Cholelithiasis/ poss cholecystitis Do you want consulting provider notified?: Yes Primary care physician: Physician Nonstaff Hospital Course: Final diagnoses Cholelithiasis, acute cholecystitis, postop day #3 Atypical chest pain, troponin negative EKG nonremarkable. Obesity, counseling completed Hypertension, stage I, monitor outpatient Discharge disposition This is a pleasant 45 male who was discharged home status post-op day #3 laproscopic cholecystectomy. Patient's pain has much improved today, he is able to ambulate without difficulty. Patient is given a prescription for lab work in 2 days, follow-up with surgical services, follow-up with PCP. Hospital course This is a pleasant 45 drug male who presents to the emergency room for complaints of a sudden onset pain in the epigastric region radiating to the right upper quadrant. This pain was exacerbated by eating a chicken sandwich. Patient is sweaty, hot, nauseous and vomiting at the time of assessment. Patient does have a history of appendectomy, he takes no medications at home. Patient's EKG is within normal limits, patient is also reporting some chest pain. Abdominal pelvis CT was completed in the ED there was no acute findings except for gallstones. Patient was evaluated by surgical services to schedule patient for a laparoscopic cholecystectomy on 04/14/2021. Labs reviewed, patient has a mild leukocytosis on admission 12.3. It is resolved 8.8. In addition patient's bilirubin was elevated to 2, and is now 1. Troponin levels were negative 2. Vital signs have remained stable this admission, afebrile 98.1, heart rate 90 sinus rhythm, blood pressure 134/67 patient is 91-92% on room air. Patient has been using his incentive spirometry, passing gas. He reports no bowel movement. He is ambulating without difficulty. On the day of discharge 04/16/2021, AST was found to be 55, ALP 66, alk phos 127 patient can repeat outpatient. Patient is evaluated today after being monitor overnight for a one-time fever of 101. Patient denies any chest pain, palpitations. He denies any cough or shortness of breath. Patient denies any nausea or vomiting, diarrhea. He did denies any bowel movement however he is passing gas. Patient is urinating without difficulty. Lungs are clear, S1-S2 auscultated. Patient does have some mild right upper quadrant abdominal pain related to postsurgical. This is expected and pain is improving. Patient will be discharged home as cleared from a surgical standpoint. Patient will have a repeat metabolic panel completed due to elevated liver enzymes. Patient is agreeable to discharge. Please see medication requisition for a list of current medications. Thank you for allowing us to participate in the care of this patient. . Patient Condition at Discharge: Good Plan - Discharge Summary Discharge Rx Participant: No New Discharge Prescriptions: New Pantoprazole [Protonix] 40 mg PO DAILY #14 tab HYDROcodone/APAP 5-325MG [Springer 5-325] 1 tab PO Q6HR PRN 3 Days #12 tab PRN Reason: Pain Docusate [Colace] 100 mg PO BID #30 cap Continue Fluticasone Nasal [place] [Flonase Nasal [place]] 2 spr EA NOSTRIL DAILY Discharge Medication List Fluticasone Nasal [place] [Flonase Nasal [place]] 2 spr EA NOSTRIL DAILY 04/12/21 [History] Docusate [Colace] 100 mg PO BID #30 cap 04/16/21 [Rx] HYDROcodone/APAP 5-325MG [[place] 5-325] 1 tab PO Q6HR PRN 3 Days #12 tab 04/16/21 [Rx] Pantoprazole [Protonix] 40 mg PO DAILY #14 tab 04/16/21 [Rx] Follow up Appointment(s)/Referral(s): Meek Graham DO [Other] - 1 Week Terrance Carter MD [STAFF PHYSICIAN] - 04/25/21 2:30 pm Ambulatory/Diagnostic Orders: Comprehensive Metabolic Panel [LAB.AMB] Time Frame: 2 Days, Location: None Selected Patient Instructions/Handouts: *Surgery [facility] - Laparoscopic Cholecystectomy Discharge Instructions Activity/Diet/Wound Care/Special Instructions: Patient is to continue with IS, encourage ambulation increase activity. No driving while taking [place] No lifting over 10 pounds You may shower. No soaking or tub baths for 2 weeks Very light activity until you are reevaluated at your follow up appointment with your surgeon Discharge Disposition: HOME SELF-CARE
--- NOTE | 2021-04-16 14:44 | P.PN ---
Subjective Progress Note Date: 04/16/21 CHIEF COMPLAINT: Cholecystitis and cholelithiasis HISTORY OF PRESENT ILLNESS: Patient is status post laparoscopic cholecystectomy. Patient reports that his pain has improved. He denies any nausea or vomiting. He's tolerating diet. He's having flatus. He is up and ambulating. He is afebrile. He did have mild tachycardia now improved. Total bilirubin normalized at 1.0 AST normalized at 55 ALT down from 67-66 alk phos 127 PHYSICAL EXAM: VITAL SIGNS: Reviewed. GENERAL: Well-developed in no acute distress. HEENT: No sclera icterus. Extraocular movements grossly intact. Moist buccal mucosa. Head is atraumatic, normocephalic. ABDOMEN: Soft. Nondistended. Incision sites clean dry and intact. Diffuse tenderness of the abdomen NEUROLOGIC: Alert and oriented. Cranial nerves II through XII grossly intact. ASSESSMENT: 1. Acute cholecystitis and cholelithiasis status post laparoscopic c holecystectomy 2. Elevated LFTs likely reactive from surgery. LFTs trending down PLAN: -Patient is stable from surgical standpoint for discharge -Patient follow-up with Dr. murphy in 1 week Physician Slope Tender note has been reviewed by physician. Signing provider agrees with the documented findings, assessment, and plan of care. Objective - Vital Signs Vital signs: Vital Signs Temp 98.1 F 04/16/21 07:00 Pulse 98 04/16/21 07:00 Resp 18 04/16/21 07:00 BP 134/76 04/16/21 07:00 Pulse Ox 91 L 04/16/21 07:00 Intake & Output 04/15/21 04/16/21 04/16/21 18:59 06:59 18:59 Intake Total 210 Balance 210 Intake: Oral 210 Other: Voiding Method Toilet # Voids 2 # Bowel Movements 0 - Labs CBC & Chem 7: 04/15/21 09:18 04/16/21 10:20 Labs: Abnormal Lab Results - Last 24 Hours (Table) 04/16/21 Range/Units 10:20 Sodium 136 L (137-145) mmol/L BUN 7 L (9-20) mg/dL Glucose 128 H (74-99) mg/dL ALT 66 H (4-49) U/L Alkaline Phosphatase 127 H (38-126) U/L Total Protein 5.7 L (6.3-8.2) g/dL Albumin 3.0 L (3.5-5.0) g/dL
== END 2021-04-16 13:10 | disposition home or self-care (01) ==
LOC: EC 01:19 → 6NMEDSUR 03:11
PROVIDERS: ADMIT Hospitalist; ATTEND Hospitalist
DX: K80.00 Calculus of gallbladder with acute cholecystitis without obstruction (principal); R07.89 Other chest pain; I10 Essential (primary) hypertension; I45.10 Unspecified right bundle-branch block; K76.89 Other specified diseases of liver; R94.5 Abnormal results of liver function studies; R00.0 Tachycardia, unspecified; E66.9 Obesity, unspecified; Z68.36 Body mass index [BMI] 36.0-36.9, adult; Z71.3 Dietary counseling and surveillance; Z79.899 Other long term (current) drug therapy; Z87.891 Personal history of nicotine dependence; Z90.49 Acquired absence of other specified parts of digestive tract
CPT/HCPCS: 96376 ×3; 96361; 96374; 96375; 99285; 36415; 93005; 88304; 83880; 80061; 80053 ×3; 80048; 80076; 83690; 83735; 84484; 85025 ×3; 85610; 85730; 87635; 76705; 71275; 74174; 47562; G0378 ×5; J2250; J2270 ×5; J2710; J2405 ×2; J0690; J3010; J1170; J0295 ×4; J1885 ×2; J0330; J2704; C9113 ×2; Q9967